=== PATIENT | female | born 1990 | race Caucasian/White ===

== ENCOUNTER → 2020-10-10 15:02 | Outpatient (CLI) | payer OTHER, SELFPAY ==
[2020-10-11 08:09] LABS: RPR Screen Non Reactive (Non Reactive)
[2020-10-13 19:01] LABS: HIV 1 & 2 Ab/Ag 4th Gen Combo NEGATIVE (NEGATIVE)
== END ==
PROVIDERS: PCP Family Medicine; Referring Provider Registered Nurse; Visit Provider Registered Nurse
DX: Z11.3 Encounter for screening for infections with a predominantly sexual mode of transmission (principal); N89.8 Other specified noninflammatory disorders of vagina
CPT/HCPCS: 36415; 86592; 86696; 87210; 87389

== ENCOUNTER → 2020-10-31 11:16 | Outpatient (CLI) | payer OTHER, SELFPAY ==
[2020-10-31 12:10] LABS: Hemoglobin A1C% w Est Avg Glu 4.9 % (4.0-6.0)
== END ==
PROVIDERS: PCP Family Medicine; Referring Provider Family Medicine; Visit Provider Family Medicine
DX: O24.419 Gestational diabetes mellitus in pregnancy, unspecified control (principal)
CPT/HCPCS: 36415; 83036